=== PATIENT | female | born 1945 | race Hispanic/Latino ===

== ENCOUNTER 2016-11-25 11:47 | Emergency (ER) | payer OTHER ==
[2016-11-25 11:55] VITALS: BMI 31.2
[2016-11-25 11:58] VITALS: BP 118/83; PULSE 86; RESP 18; TEMP 97.7; O2SAT 98
--- NOTE | 2016-11-25 12:44 | ED PDOC ---
Arrival/HPI - General Chief Complaint: Lower Extremity Problem/Injury Time Seen by Provider: 11/25/16 12:40 Historian: Patient - History of Present Illness Narrative History of Present Illness (Text): 11/25/16 12:41 71 y.o. female who denies any significant past medical history. She says that for a long time (at least several months), she has had a pulling sensation around the right knee and yesterday while walking, felt a lot of pain in the back of the knee, in the lower R thigh approaching the back of the knee and the knee itself. It is worse with certain movements. No calf pain or swelling. She does feel a sensation on the lateral right foot as if it is cold though it is not. She has mild L side back pain which is not new but no right side back pain or hip pain. Patient took aspirin for the pain, with relief. No chest pain or shortness of breathing. Past Medical History - Past History Past History: No Previous - Infectious Disease Hx of Infectious Diseases: None - Tetanus Immunization Tetanus Immunization: Unknown - Reproductive Menopause: Yes - Past Medical History Past Medical History: No Previous - Neurological Hx Vertigo: Yes - Psychiatric Hx Depression: No Hx Emotional Abuse: No Hx Physical Abuse: No Hx Substance Use: No - Past Surgical History Past Surgical History: No Previous - Surgical History Other/Comment: cyst removed - Anesthesia Hx Anesthesia: Yes - Suicidal Assessment Feels Threatened In Home Enviroment: No Family/Social History Family/Social History: No Known Family HX Smoking Status: Never Smoked Hx Alcohol Use: Yes Hx Substance Use: No Hx Substance Use Treatment: No Allergies/Home Meds Allergies/Adverse Reactions: Allergies pseudoephedrine Allergy (Verified 11/25/16 11:56) RASH triprolidine Allergy (Verified 11/25/16 11:56) RASH Review of Systems - Review of Systems Respiratory: absent: SOB Cardiovascular: absent: Chest Pain Musculoskeletal: Back Pain (only right side back pain, not acute but no left side back pain), Other (posterior R knee pain) Neurological: Normal Physical Exam Vital Signs Temp Pulse Resp BP Pulse Ox 11/25/16 11:56 97.7 F 86 18 118/83 98 Temperature: Afebrile Blood Pressure: Normal Pulse: Regular Respiratory Rate: Normal Appearance: Positive for: Well-Appearing, Non-Toxic, Comfortable Pain Distress: None Mental Status: Positive for: Alert and Oriented X 3 - Systems Exam Head: Present: Atraumatic, Normocephalic Lower Extremity: Present: Normal Inspection, NORMAL PULSES, Normal ROM. No: Edema, CALF TENDERNESS, Swelling Skin: Present: Warm, Dry, Normal Color. No: Rashes Medical Decision Making ED Course and Treatment: 11/25/16 12:45 Impression: Patient is a 71 y.o. female with no sig past medical history with posterior R knee pain Differential: Shook's Cyst vs. DVT vs knee sprain vs lumbar radiculopathy Plan: Will obtain x-ray and sono; patient declined analgesia 11/25/16 14:22 X-ray and sono are negative - will d/c on nsaid and tramadol and in cane and knee immobilizer and have her follow up ortho. - RAD Interpretation Radiology Orders: 11/25/16 12:40 KNEE W PATELLA RIGHT 3 VIEW [RAD] Stat 11/25/16 12:41 DUPLEX LOWER EXTRM VEIN RIGHT [US] Stat Disposition/Present on Arrival - Present on Arrival Any Indicators Present on Arrival: No History of DVT/PE: No History of Uncontrolled Diabetes: No Urinary Catheter: No History of Decub. Ulcer: No History Surgical Site Infection Following: None - Disposition Have Diagnosis and Disposition been Completed?: Yes Diagnosis: Posterior right knee pain Disposition: HOME/ ROUTINE Disposition Time: 14:30 Patient Plan: Discharge Patient Problems: Current Active Problems Problem Status Onset Posterior right knee pain Acute Condition: GOOD Additional Instructions: Tiesha Wang, thank you for letting us take care of you today. Your provider was Dr. Zepeda. You were treated for right leg/knee pain. The emergency medical care you received today was directed at your acute symptoms. If you were prescribed any medication, please fill it and take as directed. It may take several days for your symptoms to resolve. Please contact your doctor or call one of the physicians/clinics you have been referred to that are listed on the Patient Visit Information form that is included in your discharge packet. Bring any paperwork you were given at discharge with you along with any medications you are taking to your follow up visit. Our treatment cannot replace ongoing medical care by a primary care provider (PCP) outside of the emergency department. If you had an X-Ray or CT scan: A Radiologist will review the ED reading if any change in treatment is needed we will contact you. Maintain knee immobilizer and continue naprosyn for pain and follow up with orthopedics; recommend MRI of the knee and possibly low back as per ortho evaluation. Return to the emergency department if any new concerning symptoms. Thank you for allowing the [facility] team to be part of your care today. Prescriptions: Naproxen [Naprosyn] 500 mg PO BID PRN #30 tab PRN Reason: Pain traMADol [Ultram] 1 tab PO Q8H PRN #20 tab PRN Reason: Pain, Severe (8-10) Referrals: Ifeanyi Nolen MD [Primary Care Provider] - Follow up with primary Juan Manuel Irizarry MD [Staff Provider] - Follow up with primary Galileo Barahona DO [Staff Provider] - Follow up with primary Maxi Arambula MD [Staff Provider] - Follow up with primary Forms: WORK NOTE
--- NOTE | 2016-11-25 14:41 | US ---
PROCEDURE: Right lower extremity venous US HISTORY: Leg pain and swelling. Evaluate for DVT. PHYSICIAN(S): Dylan Aragon M.D. TECHNIQUE: Duplex sonography and color-flow Doppler with graded compression were used to evaluate the deep venous system of the right lower extremity. FINDINGS: The visualized deep venous system of the right lower extremity is sonographically normal and compressible. Normal waveforms and augmentation are seen. There is no sonographic evidence for deep venous thrombosis in the visualized segments of the right lower extremity. IMPRESSION: 1. No sonographic evidence for deep venous thrombosis in the visualized segments of the right lower extremity.
--- NOTE | 2016-11-25 15:06 | RAD ---
PROCEDURE: Right Knee Radiographs. HISTORY: R knee pain COMPARISON: None. FINDINGS: BONES: Normal. No fracture. JOINTS: Normal. No osteoarthritis. JOINT EFFUSION: None. OTHER FINDINGS: None. IMPRESSION: Normal radiographs of the right knee.
== END 2016-11-25 14:49 | disposition home or self-care (01) ==
LOC: ED 11:47
DX: M25.561 Pain in right knee (principal)